=== PATIENT | male | born 1935 | race Caucasian/White ===

== ENCOUNTER 2016-12-29 12:30 | Inpatient (IN) | payer MEDICARE, OTHER ==
[~2016-12-29] VITALS: Ht 172.7 cm; Wt 86.2 kg
[2016-12-29] MEDS ORDERED: SODIUM CHLORIDE FLUSH 10ML SYR IVF ONE ×2 (13:00→16:00)
[2016-12-29] MEDS ORDERED: ACETAMINOPHEN 325 MG TABLET ONE (13:35)
[2016-12-29 13:44] LABS: BLOOD UREA NITROGEN 26 mg/dL (7-18)
[2016-12-29 13:48] LABS: IS PT STATUS REG ER OR PRE ER? YES
[2016-12-29] MEDS ORDERED: SODIUM CHLORIDE 0.9% 1,000 ML IV ONE (13:51)
[2016-12-29 14:00] LABS: DIFF TOTAL CELLS COUNTED 100 CELL DIFF
[2016-12-29] MEDS ORDERED: SODIUM CHLORIDE 0.9% 1,000ML IVBOLUS ONE (14:00)
[2016-12-29] MEDS ORDERED: ACETAMINOPHEN 325 MG TABLET PO ONE (14:00)
[2016-12-29] MEDS ORDERED: CEFTRIAXONE PMX 1GM/50ML 50 ML IVPB ONE (14:00)
[2016-12-29 14:02] LABS: VERIFY COUNTS? YES
[2016-12-29 14:03] LABS: LARGE PLATELETS 1+
[2016-12-29] MEDS ORDERED: CHOL10002 PO (14:05)
[2016-12-29] MEDS ORDERED: IRON1TAB60 PO (14:05)
[2016-12-29] MEDS ORDERED: OMEG1CAP34 PO (14:05)
[2016-12-29] MEDS ORDERED: CYAN2500 PO (14:05)
[2016-12-29] MEDS ORDERED: VERA40TA PO (14:05)
[2016-12-29] MEDS ORDERED: TAMS0.4C2 PO (14:05)
[2016-12-29] MEDS ORDERED: MULT-6 PO (14:05)
[2016-12-29] MEDS ORDERED: ASPI-515 PO (14:05)
[2016-12-29] MEDS ORDERED: LOVA20TA2 PO (14:05)
[2016-12-29] MEDS ORDERED: OMEP40CA6 PO (14:05)
[2016-12-29] MEDS ORDERED: NIAC500C8 PO (14:05)
[2016-12-29] MEDS ORDERED: LISI-170 PO (14:05)
[2016-12-29] MEDS ORDERED: CEFTRIAXONE PMX 1GM/50ML 50 ML ONE (14:11)
[2016-12-29] MEDS ORDERED: OMNIPAQUE 350 MG/ML, 100ML BOTTLE ONE (14:20)
[2016-12-29] MEDS ORDERED: morphine SULFATE 10 MG/ML, 1ML IVPush PRN (15:30)
[2016-12-29] MEDS ORDERED: ONDANSETRON 2MG/ML, 2ML IVPush PRN (15:30)
[2016-12-29] MEDS ORDERED: CEFTRIAXONE 1,000 MG in SODIUM CHLORIDE 0.9% 50 ML IV SCH (15:30)
[2016-12-29] MEDS ORDERED: POTASSIUM CHLORIDE 20 MEQ TAB.ER.PRT PO ONE (15:30)
[2016-12-29] MEDS ORDERED: HYDROcodone/APAP 5/325 TABLET PO PRN (15:30)
[2016-12-29] MEDS ORDERED: ASPIRIN 325 MG TABLET PO ONE (15:30)
[2016-12-29 16:04] LABS: IS PT STATUS REG ER OR PRE ER? YES
[2016-12-29] MEDS ORDERED: POTASSIUM CHLORIDE 20 MEQ TAB.ER.PRT ONE (16:19)
[2016-12-29 19:57] VITALS: BP 168/67
[2016-12-29 20:18] VITALS: BP 176/68
[2016-12-29] MEDS: AZITHROMYCIN 500 MG in SODIUM CHLORIDE 0.9% 250 ML IV SCH (20:29)
[2016-12-29] MEDS: NS + 20MEQ KCL 1,000 ML IV SCH (20:29)
[2016-12-29] MEDS: GUAIFENESIN 200 MG TABLET PO SCH ×2 (20:33→20:39)
[2016-12-29] MEDS: ATORVASTATIN 40 MG TABLET PO SCH (20:33)
[2016-12-29] MEDS: ENOXAPARIN 100 MG/ML SQ SCH (20:34)
[2016-12-29] MEDS: METOPROLOL TARTRATE 25 MG TABLET PO SCH (20:34)
[2016-12-29 21:45] LABS: IS PT STATUS REG ER OR PRE ER? NO
[2016-12-30] VITALS (7 sets, daily range): BP systolic 116–158; BP diastolic 58–78
[2016-12-30] MEDS: CEFTRIAXONE PMX 1GM/50ML 50 ML IV SCH ×2 (03:05→16:02)
[2016-12-30] MEDS: GUAIFENESIN 200 MG TABLET PO SCH ×4 (05:25→20:23)
[2016-12-30] MEDS: ASPIRIN 81 MG TABLET EC PO SCH (05:25)
[2016-12-30] MEDS: METOPROLOL TARTRATE 25 MG TABLET PO SCH ×2 (05:25→17:48)
[2016-12-30 05:46] LABS: BLOOD UREA NITROGEN 21 mg/dL (7-18)
[2016-12-30 05:57] LABS: ASPARTATE AMINO TRANSFERASE 34 U/L (15-37)
[2016-12-30] MEDS: SENNA/DOCUSATE TABLET PO SCH (09:23)
[2016-12-30] MEDS: CHOLECALCIFEROL 1,000 UNIT TABLET PO SCH (09:23)
[2016-12-30] MEDS: MULTIVITAMIN 1 TABLET PO SCH (09:23)
[2016-12-30] MEDS: LISINOPRIL 20 MG TABLET PO SCH (09:23)
[2016-12-30] MEDS: OMEPRAZOLE 20 MG CAPSULE.DR PO SCH (09:23)
[2016-12-30] MEDS: TAMSULOSIN 0.4 MG CAP.ER.24H PO SCH (09:23)
[2016-12-30] MEDS: ENOXAPARIN 100 MG/ML SQ SCH ×2 (09:23→20:25)
[2016-12-30 10:07] LABS: IS PT STATUS REG ER OR PRE ER? NO
[2016-12-30] MEDS: NEUTRA PHOS K 250 MG TABLET PO SCH ×3 (11:37→20:23)
[2016-12-30] MEDS: NS + 20MEQ KCL 1,000 ML IV SCH (11:37)
[2016-12-30 16:30] LABS: IS PT STATUS REG ER OR PRE ER? NO
[2016-12-30] MEDS: ATORVASTATIN 40 MG TABLET PO SCH (20:23)
[2016-12-30] MEDS: AZITHROMYCIN 500 MG in SODIUM CHLORIDE 0.9% 250 ML IV SCH (20:26)
[2016-12-30] MEDS ORDERED: ALBUTEROL SULFATE 2.5 MG/3 ML ONE (21:00)
[2016-12-30] MEDS: ALBUTEROL SULFATE 2.5MG/0.5ML NPPB PRN (21:05)
[2016-12-30 21:16] LABS: IS PT STATUS REG ER OR PRE ER? NO
[2016-12-31] MEDS: NS + 20MEQ KCL 1,000 ML IV SCH (02:12)
[2016-12-31 02:14] VITALS: BP 156/70
[2016-12-31] MEDS: CEFTRIAXONE PMX 1GM/50ML 50 ML IV SCH ×2 (03:24→15:01)
[2016-12-31 05:04] VITALS: BP 148/62
[2016-12-31] MEDS: ASPIRIN 81 MG TABLET EC PO SCH (05:06)
[2016-12-31] MEDS: METOPROLOL TARTRATE 25 MG TABLET PO SCH ×2 (05:06→18:33)
[2016-12-31] MEDS: GUAIFENESIN 200 MG TABLET PO SCH ×4 (05:07→21:12)
[2016-12-31 05:41] LABS: BLOOD UREA NITROGEN 16 mg/dL (7-18)
[2016-12-31 07:19] VITALS: BP 166/75
[2016-12-31] MEDS: LISINOPRIL 20 MG TABLET PO SCH ×2 (08:27→21:12)
[2016-12-31] MEDS: TAMSULOSIN 0.4 MG CAP.ER.24H PO SCH (08:27)
[2016-12-31] MEDS: MULTIVITAMIN 1 TABLET PO SCH (08:27)
[2016-12-31] MEDS: OMEPRAZOLE 20 MG CAPSULE.DR PO SCH (08:27)
[2016-12-31] MEDS: ENOXAPARIN 100 MG/ML SQ SCH ×2 (08:27→21:12)
[2016-12-31] MEDS: CHOLECALCIFEROL 1,000 UNIT TABLET PO SCH (08:27)
[2016-12-31] MEDS: NEUTRA PHOS K 250 MG TABLET PO SCH ×3 (08:28→21:13)
[2016-12-31] MEDS: SENNA/DOCUSATE TABLET PO SCH ×2 (08:28→08:29)
[2016-12-31] MEDS ORDERED: REGADENOSON 0.4 MG/5 ML SYRINGE ONE (08:43)
[2016-12-31] MEDS ORDERED: POTASSIUM CHLORIDE 20 MEQ TAB.ER.PRT PO ONE (13:30)
[2016-12-31 14:07] VITALS: BP 148/70
[2016-12-31] MEDS ORDERED: FUROSEMIDE 20 MG/2 ML IV ONE (14:30)
[2016-12-31 21:04] VITALS: BP 196/78
[2016-12-31] MEDS: AZITHROMYCIN 500 MG in SODIUM CHLORIDE 0.9% 250 ML IV SCH (21:12)
[2016-12-31] MEDS: ATORVASTATIN 40 MG TABLET PO SCH (21:12)
[2016-12-31] MEDS ORDERED: ALBUTEROL SULFATE 2.5 MG/3 ML ONE (21:56)
[2016-12-31] MEDS: ALBUTEROL SULFATE 2.5MG/0.5ML NPPB PRN (22:01)
[2016-12-31 23:18] VITALS: BP 148/78
[2017-01-01] MEDS: CEFTRIAXONE PMX 1GM/50ML 50 ML IV SCH (03:10)
[2017-01-01 03:11] VITALS: BP 165/66
[2017-01-01 05:25] LABS: BLOOD UREA NITROGEN 9 mg/dL (7-18)
[2017-01-01] MEDS: ASPIRIN 81 MG TABLET EC PO SCH (05:59)
[2017-01-01] MEDS: METOPROLOL TARTRATE 25 MG TABLET PO SCH (05:59)
[2017-01-01] MEDS: GUAIFENESIN 200 MG TABLET PO SCH ×2 (05:59→11:05)
[2017-01-01] MEDS ORDERED: FUROSEMIDE 20 MG/2 ML IV ONE (08:30)
[2017-01-01] MEDS: NEUTRA PHOS K 250 MG TABLET PO SCH (08:41)
[2017-01-01] MEDS: MULTIVITAMIN 1 TABLET PO SCH (08:42)
[2017-01-01] MEDS: CHOLECALCIFEROL 1,000 UNIT TABLET PO SCH (08:42)
[2017-01-01] MEDS: TAMSULOSIN 0.4 MG CAP.ER.24H PO SCH (08:42)
[2017-01-01] MEDS: LISINOPRIL 20 MG TABLET PO SCH (08:45)
[2017-01-01] MEDS: OMEPRAZOLE 20 MG CAPSULE.DR PO SCH (08:45)
[2017-01-01] MEDS: SENNA/DOCUSATE TABLET PO SCH (08:45)
[2017-01-01 08:46] VITALS: BP 147/70
[2017-01-01] MEDS ORDERED: POTASSIUM CHLORIDE 20 MEQ TAB.ER.PRT PO SCH (09:00)
[2017-01-01] MEDS ORDERED: ENOXAPARIN 80 MG/0.8 ML SQ SCH (09:00)
[2017-01-01] MEDS ORDERED: METO25TA35 PO (09:51)
[2017-01-01] MEDS ORDERED: POTA20TA6 PO (09:51)
[2017-01-01] MEDS ORDERED: CEFD300C37 PO (09:51)
[2017-01-01] MEDS ORDERED: GUAI200T3 PO (09:51)
== END 2017-01-01 12:25 | disposition home or self-care (01) | DRG 871 ==
LOC: ED 14:55 → EDIP 14:56 → ED 15:18 → 5SO 17:36 → DCLOUNGE 01-01 11:51
PROVIDERS: ADMIT Internal Medicine; ATTEND Internal Medicine
DX: A41.9 Sepsis, unspecified organism (principal); J96.01 Acute respiratory failure with hypoxia; I50.43 Acute on chronic combined systolic (congestive) and diastolic (congestive) heart failure; I21.4 Non-ST elevation (NSTEMI) myocardial infarction; E43 Unspecified severe protein-calorie malnutrition; J18.1 Lobar pneumonia, unspecified organism; E87.1 Hypo-osmolality and hyponatremia; E87.6 Hypokalemia; I11.0 Hypertensive heart disease with heart failure; E78.5 Hyperlipidemia, unspecified; I73.9 Peripheral vascular disease, unspecified; E83.39 Other disorders of phosphorus metabolism; N40.0 Benign prostatic hyperplasia without lower urinary tract symptoms; K21.9 Gastro-esophageal reflux disease without esophagitis; Z96.653 Presence of artificial knee joint, bilateral; Z79.82 Long term (current) use of aspirin; Z79.899 Other long term (current) drug therapy; Z87.891 Personal history of nicotine dependence; Z68.28 Body mass index [BMI] 28.0-28.9, adult
CPT/HCPCS: 36415; 71010; 71020; 71275; 78452; 80048; 80053; 80061; 82040; 83036; 83605; 83735; 83880; 84100; 84145; 84443; 84484; 85025; 85610; 85730; 87040; 87070; 87205; 93005; 93017; 93306; 93922; 93925; 93978; 96365; J0456; J0696; J1650; J2785; J3480; J7611; Q9967; A9502; C9898; J1940; J7030; J7050

== ENCOUNTER → 2017-02-21 | Outpatient (CLI) | payer MEDICARE ==
[~2017-02-21] MED LIST: ASPI-515 PO; CEFD300C37 PO; CHOL10002 PO; CYAN2500 PO; GUAI200T3 PO; IRON1TAB60 PO; LISI-170 PO; LOVA20TA2 PO; METO25TA35 PO; MULT-6 PO; NIAC500C8 PO; OMEG1CAP34 PO; OMEP40CA6 PO; POTA20TA6 PO; TAMS0.4C2 PO; VERA40TA PO
== END ==
LOC: STAR 10:17
PROVIDERS: ATTEND Surgery
DX: Z02.9 Encounter for administrative examinations, unspecified (principal)

== ENCOUNTER 2017-02-26 05:59 | Day surgery (SDC) | payer MEDICARE ==
[~2017-02-26] VITALS: Ht 172.7 cm; Wt 87.5 kg
[2017-02-26 07:34] VITALS: BP 167/89
[2017-02-26] MEDS ORDERED: PROTAMINE SULFATE 10 MG/ML, 25ML ONE (07:47)
[2017-02-26] MEDS ORDERED: HEPARIN 1,000 UNITS/ML, 10ML ONE (07:48)
[2017-02-26] MEDS ORDERED: FLUMAZENIL 0.1 MG/1 ML, 5ML ONE (07:48)
[2017-02-26] MEDS ORDERED: NITROGLYCERIN 5 MG/ML, 10ML ONE (07:48)
[2017-02-26] MEDS ORDERED: MIDAZOLAM 1 MG/ML, 5ML ONE (07:48)
[2017-02-26] MEDS ORDERED: FENTANYL PF 100 MCG/2ML ONE (07:48)
[2017-02-26] MEDS ORDERED: LIDOCAINE 1%, 20ML ONE (07:48)
[2017-02-26] MEDS ORDERED: NALOXONE 1 MG/ML, 2ML ONE (07:49)
[2017-02-26] MEDS ORDERED: LIDOCAINE 2%, 20ML ONE (07:50)
[2017-02-26] MEDS ORDERED: CEFAZOLIN PMX 2GM/50ML 50 ML IVPB ONE (08:30)
[2017-02-26] MEDS ORDERED: LISINOPRIL 20 MG TABLET PO SCH (11:00)
[2017-02-26] MEDS ORDERED: VERAPAMIL 40MG TABLET PO SCH (11:00)
[2017-02-26] MEDS ORDERED: VISIPAQUE 270 MG/ML, 150ML BOTTLE ONE (11:27)
== END 2017-02-26 12:35 | disposition home or self-care (01) ==
LOC: OUT 05:59
PROVIDERS: ATTEND Surgery
DX: I73.9 Peripheral vascular disease, unspecified (principal); I10 Essential (primary) hypertension; E78.5 Hyperlipidemia, unspecified; I25.10 Atherosclerotic heart disease of native coronary artery without angina pectoris; I25.2 Old myocardial infarction
CPT/HCPCS: 36200; 75630; 76937; 99156; 99157; C1751; C1769; C1894; J2250; J3010; J3490; Q9966; 75625; 75716; J1644; J2720; J2310

== ENCOUNTER → 2017-03-06 | Outpatient (CLI) | payer MEDICARE | END | disposition home or self-care (01) | LOC: CVU 09:39 | PROVIDERS: ATTEND Surgery | DX: I65.23 Occlusion and stenosis of bilateral carotid arteries (principal); I10 Essential (primary) hypertension; E78.5 Hyperlipidemia, unspecified | CPT/HCPCS: 93880 ==

== ENCOUNTER → 2017-03-22 | Outpatient (CLI) | payer MEDICARE ==
[2017-03-22 12:13] LABS: HEMATOCRIT 41.6 % (39.2-51.8); HEMOGLOBIN 14.1 g/dL (13.7-18.0); WHITE BLOOD COUNT 5.1 x10^3/uL (3.4-10)
[2017-03-22 12:23] LABS: BLOOD UREA NITROGEN 15 mg/dL (7-18)
[2017-03-22 12:26] LABS: ASPARTATE AMINO TRANSFERASE 18 U/L (15-37)
== END | disposition home or self-care (01) ==
LOC: STAR 11:09
PROVIDERS: ATTEND Surgery
DX: Z01.818 Encounter for other preprocedural examination (principal); I73.9 Peripheral vascular disease, unspecified
CPT/HCPCS: 36415; 80053; 85025

== ENCOUNTER 2017-03-26 08:49 | Inpatient (IN) | payer MEDICARE ==
[~2017-03-26] VITALS: Ht 170.2 cm; Wt 91.3 kg
[2017-03-26] MEDS ORDERED: LACTATED RINGERS 1,000 ML IV SCH (09:22)
[2017-03-26 09:23] VITALS: BP 163/78
[2017-03-26] MEDS ORDERED: BUPIVACAINE/PF 0.25% ONE (10:40)
[2017-03-26] MEDS ORDERED: PROTAMINE SULFATE 10 MG/ML, 5ML ONE (10:40)
[2017-03-26] MEDS ORDERED: THROMBIN 20,000 UNIT VIAL TP ONE (10:40)
[2017-03-26] MEDS ORDERED: EPINEPHRINE 1 MG/ML, 1ML ONE ×2 (10:40→11:26)
[2017-03-26] MEDS ORDERED: HEPARIN 1,000 UNITS/ML, 10ML ONE (10:43)
[2017-03-26] MEDS ORDERED: FENTANYL PF 100 MCG/2ML ONE ×4 (10:49→14:17)
[2017-03-26] MEDS ORDERED: MIDAZOLAM 1 MG/ML, 2ML ONE (10:49)
[2017-03-26] MEDS ORDERED: PROPOFOL 10 MG/ML, 20ML ONE (11:26)
[2017-03-26] MEDS ORDERED: ROCURONIUM 10 MG/ML ONE (11:26)
[2017-03-26] MEDS ORDERED: CEFAZOLIN 1,000 MG ONE (11:26)
[2017-03-26] MEDS ORDERED: SUCCINYLCHOLINE 20 MG/ML, 10ML ONE (11:26)
[2017-03-26] MEDS ORDERED: hydrALAzine 20 MG/ML, 1ML IV PRN ×2 (13:00→16:30)
[2017-03-26] MEDS ORDERED: ACETAMINOPHEN 325 MG TABLET PO PRN (13:00)
[2017-03-26] MEDS ORDERED: LABETALOL 5MG/ML, 20ML IV PRN (13:00)
[2017-03-26] MEDS ORDERED: OXYcodone 5 MG/5 ML ORAL.SOL UDC PO PRN (13:00)
[2017-03-26] MEDS ORDERED: METOCLOPRAMIDE 5 MG/ML, 2ML IV PRN (13:00)
[2017-03-26] MEDS ORDERED: HYDROmorphone 1 MG/ML, 1ML IV PRN (13:00)
[2017-03-26] MEDS ORDERED: ONDANSETRON 2MG/ML, 2ML IVPush PRN (13:00)
[2017-03-26] MEDS ORDERED: OXYcodone 5 MG/5 ML ORAL.SOL UDC ONE (14:17)
[2017-03-26] MEDS: ASPIRIN 325 MG TABLET EC PO SCH (14:20)
[2017-03-26] MEDS: FENTANYL PF 100 MCG/2ML IV PRN ×2 (14:20→14:35)
[2017-03-26 15:07] VITALS: BP 148/73
[2017-03-26] MEDS ORDERED: LABETALOL 5MG/ML, 20ML IVPush PRN (16:30)
[2017-03-26] MEDS ORDERED: MORPHINE SULFATE 4 MG/ML, 1ML IV PRN (16:30)
[2017-03-26] MEDS ORDERED: ONDANSETRON 2MG/ML, 2ML IV PRN (16:30)
[2017-03-26] MEDS ORDERED: HYDROcodone/APAP 5/325 TABLET PO PRN (16:30)
[2017-03-26 19:37] VITALS: BP 137/65
[2017-03-26] MEDS: TAMSULOSIN 0.4 MG CAP.ER.24H PO SCH (20:48)
[2017-03-26] MEDS: CEFAZOLIN PMX 2GM/100ML 100 ML IVPB SCH (20:48)
[2017-03-26] MEDS: SODIUM CHLORIDE FLUSH 10ML SYR IVF SCH (20:48)
[2017-03-26] MEDS: LACTATED RINGERS 1,000 ML IV SCH (20:48)
[2017-03-26] MEDS: ENOXAPARIN 40 MG/0.4 ML SQ SCH (20:49)
[2017-03-26] MEDS: LOVASTATIN 40 MG TABLET PO SCH (20:49)
[2017-03-26 23:41] VITALS: BP 154/71
[2017-03-27] VITALS (7 sets, daily range): BP systolic 126–171; BP diastolic 62–83
[2017-03-27] MEDS: CEFAZOLIN PMX 2GM/100ML 100 ML IVPB SCH ×3 (04:16→20:10)
[2017-03-27] MEDS ORDERED: ASPIRIN 325 MG TABLET EC PO SCH (06:00)
[2017-03-27 06:02] LABS: BLOOD UREA NITROGEN 13 mg/dL (7-18)
[2017-03-27 06:12] LABS: HEMATOCRIT 32.8 % (39.2-51.8); HEMOGLOBIN 11.2 g/dL (13.7-18.0); WHITE BLOOD COUNT 6.3 x10^3/uL (3.4-10)
[2017-03-27] MEDS: LACTATED RINGERS 1,000 ML IV SCH ×2 (07:46→16:18)
[2017-03-27] MEDS: VERAPAMIL 40MG TABLET PO SCH (09:16)
[2017-03-27] MEDS: SODIUM CHLORIDE FLUSH 10ML SYR IVF SCH ×2 (09:16→20:10)
[2017-03-27] MEDS: LISINOPRIL 20 MG TABLET PO SCH (09:16)
[2017-03-27] MEDS: OMEPRAZOLE 20 MG CAPSULE.DR PO SCH (09:16)
[2017-03-27] MEDS: CHOLECALCIFEROL 1,000 UNIT TABLET PO SCH (09:17)
[2017-03-27] MEDS: CYANOCOBALAMIN 1,000 MCG TABLET PO SCH (09:17)
[2017-03-27] MEDS: TAMSULOSIN 0.4 MG CAP.ER.24H PO SCH (20:10)
[2017-03-27] MEDS: LOVASTATIN 40 MG TABLET PO SCH (20:10)
[2017-03-27] MEDS ORDERED: NIACIN 500 MG TABLET.ER PO SCH (21:00)
[2017-03-27] MEDS: ENOXAPARIN 40 MG/0.4 ML SQ SCH (22:19)
[2017-03-28 00:42] VITALS: BP 145/61
[2017-03-28] MEDS: CEFAZOLIN PMX 2GM/100ML 100 ML IVPB SCH ×2 (04:29→12:28)
[2017-03-28] MEDS: ASPIRIN 325 MG TABLET EC PO SCH (06:00)
[2017-03-28] MEDS: LACTATED RINGERS 1,000 ML IV SCH (07:18)
[2017-03-28 07:22] VITALS: BP 154/68
[2017-03-28] MEDS: LISINOPRIL 20 MG TABLET PO SCH (08:21)
[2017-03-28] MEDS: CYANOCOBALAMIN 1,000 MCG TABLET PO SCH (08:21)
[2017-03-28] MEDS: CHOLECALCIFEROL 1,000 UNIT TABLET PO SCH (08:21)
[2017-03-28] MEDS: VERAPAMIL 40MG TABLET PO SCH (08:22)
[2017-03-28] MEDS: SODIUM CHLORIDE FLUSH 10ML SYR IVF SCH (08:22)
[2017-03-28] MEDS: OMEPRAZOLE 20 MG CAPSULE.DR PO SCH (08:22)
[2017-03-28] MEDS ORDERED: MULTIVITAMINS WITH IRON TABLET PO SCH (09:00)
[2017-03-28 13:19] VITALS: BP 134/65
[2017-03-28] MEDS ORDERED: HYDR-3240 PO (17:23)
[2017-03-28] MEDS ORDERED: DOCU-131 PO (17:24)
[2017-03-28] MEDS ORDERED: AMOX1TAB64 PO (17:25)
[2017-03-28] MEDS ORDERED: NEOSPORIN OINT, 15GM TP PRN (17:30)
[2017-03-28] MEDS ORDERED: CEFAZOLIN PMX 2GM/50ML 50 ML IVPB SCH (20:30)
== END 2017-03-28 18:20 | disposition home or self-care (01) | DRG 270 ==
LOC: ORIP 08:49 → 4NOR 14:58
PROVIDERS: ADMIT Surgery; ATTEND Surgery
PROC: 04UK0KZ Supplement Right Femoral Artery with Nonautologous Tissue Substitute, Open Approach (ICD-10-PCS; 2017-03-26)
PROC: 04CH0ZZ Extirpation of Matter from Right External Iliac Artery, Open Approach (ICD-10-PCS; 2017-03-26)
PROC: 04UH0KZ Supplement Right External Iliac Artery with Nonautologous Tissue Substitute, Open Approach (ICD-10-PCS; 2017-03-26)
PROC: 04CK0ZZ Extirpation of Matter from Right Femoral Artery, Open Approach (ICD-10-PCS; principal; 2017-03-26 11:00)
DX: I70.221 Atherosclerosis of native arteries of extremities with rest pain, right leg (principal); E43 Unspecified severe protein-calorie malnutrition; I10 Essential (primary) hypertension; E78.5 Hyperlipidemia, unspecified; Z96.651 Presence of right artificial knee joint; I25.10 Atherosclerotic heart disease of native coronary artery without angina pectoris; I25.2 Old myocardial infarction
CPT/HCPCS: 36415; 80048; 82040; 85025; 86850; 86900; J0171; J0690; J1644; J1650; J2250; J2704; J2720; J3010; J3490; C1757; C1768; J0330; J0360; J7120

== ENCOUNTER → 2018-09-17 | Outpatient (CLI) | payer MEDICARE ==
[~2018-09-17] MED LIST changes: +AMOX1TAB64 PO; +DOCU-131 PO; +HYDR-3240 PO; +REGADENOSON 0.4 MG/5 ML SYRINGE ONE
== END | disposition home or self-care (01) ==
LOC: CFH 07:38
PROVIDERS: ATTEND Internal Medicine Cardiovascular Disease
DX: I35.0 Nonrheumatic aortic (valve) stenosis (principal); I25.10 Atherosclerotic heart disease of native coronary artery without angina pectoris; I25.2 Old myocardial infarction; I10 Essential (primary) hypertension
CPT/HCPCS: 78452; 93017; 93306; A9502; J2785

== ENCOUNTER → 2019-11-12 | Outpatient (CLI) | payer MEDICARE ==
[~2019-11-12] MED LIST changes: -GUAI200T3 PO; +GUAI200T37 PO; +OMEP40CA42 PO; -OMEP40CA6 PO; -REGADENOSON 0.4 MG/5 ML SYRINGE ONE
== END | disposition home or self-care (01) ==
LOC: CVU 12:29
PROVIDERS: ATTEND Internal Medicine Cardiovascular Disease
DX: I08.8 Other rheumatic multiple valve diseases (principal); I25.2 Old myocardial infarction; I25.10 Atherosclerotic heart disease of native coronary artery without angina pectoris; I10 Essential (primary) hypertension
CPT/HCPCS: 93306